=== PATIENT | female | born 1935 | race Caucasian/White ===

== ENCOUNTER 2017-10-11 10:13 | Emergency (ER) | payer MEDICARE ==
[~2017-10-11] VITALS: Ht 152.4 cm; Wt 61.7 kg
[~2017-10-11 10:13] MED LIST: ALBU90OI INH; ALEN70 PO; BENZ100A PO; CIPR250 PO; ENOX30I SQ; ERGO50000 PO; ESCI20 PO; GABA600 PO; HYDACE5 PO; MULVITMIND PO; NITR100; PRIM50 PO; Percocet 5-3251 EACH PO; ROSU10TA; ROSU10TA PO; SOMA350 MG PO; TOPI100 PO; WARF10 PO; WARF5 PO; Zithromax250 MG PO; Zofran4 MG PO; [UNRECOGNIZED DRUG - REMARK]
[2017-10-11] MEDS ORDERED: OMEPRAZOLE DR 20 MG (10:35)
[2017-10-11] MEDS ORDERED: TRAM50 (10:35)
[2017-10-11] MEDS ORDERED: HYDR1TAB94 PO (11:38)
== END 2017-10-11 11:20 | disposition home or self-care (01) ==
LOC: ER 10:13
DX: S83.92XA Sprain of unspecified site of left knee, initial encounter (principal); Z88.0 Allergy status to penicillin; Z88.5 Allergy status to narcotic agent; Z91.011 Allergy to milk products; Z79.899 Other long term (current) drug therapy; Z79.01 Long term (current) use of anticoagulants; Z86.718 Personal history of other venous thrombosis and embolism; Z90.89 Acquired absence of other organs; Z90.710 Acquired absence of both cervix and uterus; X58.XXXA Exposure to other specified factors, initial encounter
CPT/HCPCS: 73562-LT; 99283

== ENCOUNTER 2017-10-12 12:21 | Emergency (ER) | payer MEDICARE ==
[~2017-10-12] VITALS: Ht 154.9 cm; Wt 61.2 kg
[~2017-10-12 12:21] MED LIST changes: +HYDR1TAB94 PO; +OMEPRAZOLE DR 20 MG; +TRAM50
== END 2017-10-12 14:46 | disposition home or self-care (01) ==
LOC: ER 12:21
DX: S20.211A Contusion of right front wall of thorax, initial encounter (principal); Z86.718 Personal history of other venous thrombosis and embolism; Z90.710 Acquired absence of both cervix and uterus; Z88.0 Allergy status to penicillin; Z88.5 Allergy status to narcotic agent; Z91.011 Allergy to milk products; Z79.899 Other long term (current) drug therapy; Z79.01 Long term (current) use of anticoagulants; W18.30XA Fall on same level, unspecified, initial encounter
CPT/HCPCS: 71046; 99283

== ENCOUNTER → 2018-04-29 | Outpatient (CLI) | payer MEDICARE | END | disposition home or self-care (01) | LOC: LAB SHORT 10:38 → PLD 10:38 | DX: D22.39 Melanocytic nevi of other parts of face (principal); L57.0 Actinic keratosis; L57.8 Other skin changes due to chronic exposure to nonionizing radiation; B07.9 Viral wart, unspecified | CPT/HCPCS: 88305 ==

== ENCOUNTER → 2019-03-02 | Outpatient (CLI) | payer MEDICARE ==
[2019-03-02 13:10] LABS: BASOPHILS ABSOLUTE AUTO 0.05 K/mm3 (0.00-0.23); BASOPHILS PERCENT AUTO 1 % (0-2); EOSINOPHILS ABSOLUTE AUTO 0.06 K/mm3 (0.00-0.68); EOSINOPHILS PERCENT AUTO 1 % (0-6); Hematocrit 44.7 % (33.0-51.0); Hemoglobin 14.2 g/dL (11.5-16.0); IMMATURE GRAN ABSOLUTE AUTO 0.01 K/mm3 (0.00-0.10); IMMATURE GRAN PERCENT AUTO 0 % (0-1); LYMPHOCYTES ABSOLUTE AUTO 1.75 K/mm3 (0.84-5.20); LYMPHOCYTES PERCENT AUTO 25 % (21-46); MONOCYTES ABSOLUTE AUTO 0.51 K/mm3 (0.16-1.47); MONOCYTES PERCENT AUTO 7 % (4-13); Mean Corpuscular HGB 29.9 pg (26.0-34.0); Mean Corpuscular HGB Conc 31.8 g/dL (31.5-36.5); Mean Corpuscular Volume 94 fL (80-100); Mean Platelet Volume 10.9 fL (9.1-12.4); NEUTROPHILS ABSOLUTE AUTO 4.55 K/mm3 (1.96-9.15); NEUTROPHILS PERCENT AUTO 66 % (41-73); Platelet Count 391 K/mm3 (150-400); RDW Coefficient Variation 12.6 % (11.7-14.2); RDW Standard Deviation 43.7 fL (35.1-46.3); Red Blood Cell Count 4.75 M/mm3 (3.80-5.20); White Blood Cell Count 6.93 K/mm3 (4.00-11.30)
[2019-03-02 13:25] LABS: Albumin, Blood 4.3 g/dL (3.4-5.0); Albumin/Globulin Ratio 1.4 (0.8-1.8); Bilirubin, Total 0.4 mg/dL (0.1-1.0); Bun/Creatinine Ratio 18.7 (12.0-20.0); Calcium, Blood 9.3 mg/dL (8.5-10.1); Creatinine, Blood 0.96 mg/dL (0.40-1.00); Globulin, Blood 3.1 g/dL (2.2-4.0); Potassium, Blood 4.8 mmol/L (3.5-5.5); Total Protein, Blood 7.4 g/dL (6.4-8.2)
== END | disposition home or self-care (01) ==
LOC: LAB SHORT 12:41 → LAB 12:41
PROVIDERS: Physician Assistant
DX: R10.84 Generalized abdominal pain (principal)
CPT/HCPCS: 80053; 85025

== ENCOUNTER 2019-10-04 02:37 | Emergency (ER) | payer SELFPAY ==
[~2019-10-04] VITALS: Ht 154.9 cm; Wt 64.4 kg
[2019-10-04 03:08] LABS: Source, Urine Clean Catch
[2019-10-04 03:14] LABS: BASOPHILS ABSOLUTE AUTO 0.04 K/mm3 (0.00-0.23); BASOPHILS PERCENT AUTO 1 % (0-2); EOSINOPHILS ABSOLUTE AUTO 0.11 K/mm3 (0.00-0.68); EOSINOPHILS PERCENT AUTO 2 % (0-6); Hematocrit 38.9 % (33.0-51.0); Hemoglobin 12.4 g/dL (11.5-16.0); IMMATURE GRAN ABSOLUTE AUTO 0.01 K/mm3 (0.00-0.10); IMMATURE GRAN PERCENT AUTO 0 % (0-1); LYMPHOCYTES ABSOLUTE AUTO 1.51 K/mm3 (0.84-5.20); LYMPHOCYTES PERCENT AUTO 26 % (21-46); MONOCYTES PERCENT AUTO 9 % (4-13); Mean Corpuscular HGB 30.3 pg (26.0-34.0); Mean Corpuscular HGB Conc 31.9 g/dL (31.5-36.5); Mean Corpuscular Volume 95 fL (80-100); Mean Platelet Volume 10.8 fL (9.1-12.4); NEUTROPHILS ABSOLUTE AUTO 3.61 K/mm3 (1.96-9.15); NEUTROPHILS PERCENT AUTO 62 % (41-73); Platelet Count 263 K/mm3 (150-400); RDW Coefficient Variation 12.3 % (11.7-14.2); RDW Standard Deviation 43.1 fL (35.1-46.3); Red Blood Cell Count 4.09 M/mm3 (3.80-5.20); White Blood Cell Count 5.78 K/mm3 (4.00-11.30)
[2019-10-04 03:16] LABS: Bilirubin, Urine Neg (Neg); Blood, Urine Neg (Neg); Glucose Qualitative, Urine Neg (Neg); Ketones, Urine Neg (Neg); Leukocyte Esterase, Urine Neg (Neg); Nitrite, Urine Neg (Neg); Protein, Urine Neg (Neg); Specific Gravity, Urine 1.005 (1.003-1.022); Urobilinogen, Urine NORM (Normal)
[2019-10-04 03:28] LABS: Alanine Aminotransfer (ALT/SGP 19 U/L (12-78); Albumin, Blood 3.9 g/dL (3.4-5.0); Albumin/Globulin Ratio 1.3 (0.8-1.8); Alk Phos 148 U/L (50-136); Anion Gap 3 mmol/L (6-16); Aspartate Aminotrans (AST/SGOT 16 U/L (12-37); Bilirubin, Total 0.4 mg/dL (0.1-1.0); Blood Urea Nitrogen 17 mg/dL (8-24); Bun/Creatinine Ratio 19.4 (12.0-20.0); CO2, Blood 28 mmol/L (21-32); Calcium, Blood 9.3 mg/dL (8.5-10.1); Chloride, Blood 112 mmol/L (98-108); Creatinine, Blood 0.88 mg/dL (0.40-1.00); Globulin, Blood 2.9 g/dL (2.2-4.0); Glomerular Filtration Rate >60 (60-); Glucose, Blood 100 mg/dL (70-99); Magnesium, Blood 2.1 mg/dL (1.6-2.4); Potassium, Blood 4.7 mmol/L (3.5-5.5); Sodium, Blood 143 mmol/L (136-145); Total Protein, Blood 6.8 g/dL (6.4-8.2); Troponin I <0.015 ng/mL (0.000-0.040)
[2019-10-04 03:32] LABS: Appearance, Urine Clear (Clear); Color, Urine Pale Yellow (P-Yellow)
== END 2019-10-04 04:44 | disposition home or self-care (01) ==
LOC: ER 02:37
PROVIDERS: Emergency Medicine
DX: E86.0 Dehydration (principal); R53.1 Weakness; J45.909 Unspecified asthma, uncomplicated; Z86.718 Personal history of other venous thrombosis and embolism; Z88.0 Allergy status to penicillin; Z88.5 Allergy status to narcotic agent; Z91.011 Allergy to milk products
CPT/HCPCS: 36415; 71045; 80053; 81003; 83605; 83735; 83880; 84443; 84484; 85025; 93005; 93010; 96360; 99284-25; J7030; P9612

== ENCOUNTER 2021-12-12 20:35 | Emergency (ER) | payer OTHER ==
[~2021-12-12] VITALS: Ht 157.5 cm; Wt 49.9 kg
[2021-12-13 00:04] LABS: BASOPHILS ABSOLUTE AUTO 0.04 K/mm3 (0.00-0.23); BASOPHILS PERCENT AUTO 1 % (0-2); EOSINOPHILS ABSOLUTE AUTO 0.04 K/mm3 (0.00-0.68); EOSINOPHILS PERCENT AUTO 1 % (0-6); Hematocrit 33.9 % (33.0-51.0); Hemoglobin 11.1 g/dL (11.5-16.0); IMMATURE GRAN ABSOLUTE AUTO 0.02 K/mm3 (0.00-0.10); IMMATURE GRAN PERCENT AUTO 0 % (0-1); LYMPHOCYTES ABSOLUTE AUTO 1.57 K/mm3 (0.84-5.20); LYMPHOCYTES PERCENT AUTO 20 % (21-46); MONOCYTES PERCENT AUTO 6 % (4-13); Mean Corpuscular HGB 30.6 pg (26.0-34.0); Mean Corpuscular HGB Conc 32.7 g/dL (31.5-36.5); Mean Corpuscular Volume 93 fL (80-100); Mean Platelet Volume 11.3 fL (9.1-12.4); NEUTROPHILS ABSOLUTE AUTO 5.88 K/mm3 (1.96-9.15); NEUTROPHILS PERCENT AUTO 73 % (41-73); Platelet Count 223 K/mm3 (150-400); RDW Coefficient Variation 12.5 % (11.7-14.2); RDW Standard Deviation 43.1 fL (35.1-46.3); Red Blood Cell Count 3.63 M/mm3 (3.80-5.20); White Blood Cell Count 8.05 K/mm3 (4.00-11.30)
[2021-12-13 00:22] LABS: Bun/Creatinine Ratio 21.9 (12.0-20.0); Calcium, Blood 9.3 mg/dL (8.5-10.1); Creatinine, Blood 0.92 mg/dL (0.40-1.00); Potassium, Blood 4.4 mmol/L (3.5-5.5)
[2021-12-13 00:58] LABS: Appearance, Urine Clear (Clear); Bilirubin, Urine Neg (Neg); Blood, Urine Neg (Neg); Color, Urine Yellow (P-Yellow); Glucose Qualitative, Urine Neg (Neg); Ketones, Urine Neg (Neg); Leukocyte Esterase, Urine 1+ (Neg); Nitrite, Urine Neg (Neg); Protein, Urine Neg (Neg); Urobilinogen, Urine NORM (Normal)
[2021-12-13 01:07] LABS: Bacteria Few /hpf; Red Blood Cells, Urine 0-2 /hpf (0-2); Squamous Epithelial Cells Rare /hpf (Few)
[2021-12-13 01:09] LABS: Source, Urine Condom Cath
[2022-03-23] MEDS ORDERED: Percocet 5-3251 EACH PO (19:41)
== END 2021-12-13 08:46 | disposition home or self-care (01) ==
LOC: ER 20:35
PROVIDERS: Student in an Organized Health Care Education/Training Program
DX: S06.0X0A Concussion without loss of consciousness, initial encounter (principal); S00.83XA Contusion of other part of head, initial encounter; S40.012A Contusion of left shoulder, initial encounter; R25.1 Tremor, unspecified; Z88.0 Allergy status to penicillin; Z88.5 Allergy status to narcotic agent; Z79.899 Other long term (current) drug therapy; W19.XXXA Unspecified fall, initial encounter
CPT/HCPCS: 36415; 70450; 73030; 73590; 80048; 81001; 85025; 87086; 96374; 99284-25; J0360

== ENCOUNTER 2022-03-16 20:09 | Emergency (ER) | payer OTHER ==
[~2022-03-16] VITALS: Ht 152.4 cm; Wt 45.4 kg
[2022-03-16 20:58] LABS: Hematocrit 32.2 % (33.0-51.0); Hemoglobin 10.4 g/dL (11.5-16.0); Mean Corpuscular HGB 30.3 pg (26.0-34.0); Mean Corpuscular HGB Conc 32.3 g/dL (31.5-36.5); Mean Corpuscular Volume 94 fL (80-100); Mean Platelet Volume 10.4 fL (9.1-12.4); Platelet Count 212 K/mm3 (150-400); RDW Coefficient Variation 12.8 % (11.7-14.2); RDW Standard Deviation 43.9 fL (35.1-46.3); Red Blood Cell Count 3.43 M/mm3 (3.80-5.20); White Blood Cell Count 17.19 K/mm3 (4.00-11.30)
[2022-03-16 21:08] LABS: Albumin, Blood 3.7 g/dL (3.4-5.0); Albumin/Globulin Ratio 1.5 (0.8-1.8); Bilirubin, Total 0.7 mg/dL (0.1-1.0); Bun/Creatinine Ratio 28.8 (12.0-20.0); Creatinine, Blood 0.83 mg/dL (0.40-1.00); Globulin, Blood 2.4 g/dL (2.2-4.0); Potassium, Blood 4.5 mmol/L (3.5-5.5); Total Protein, Blood 6.1 g/dL (6.4-8.2)
[2022-03-16 21:22] LABS: BAND PERCENT MAN 15 % (0-8); BASOPHILS ABSOLUTE MAN 0.17 K/mm3 (0.00-0.23); BASOPHILS PERCENT MAN 1 % (0-2); EOSINOPHILS PERCENT MAN 0 % (0-6); LYMPHOCYTES ABSOLUTE MAN 0.51 K/mm3 (0.84-5.20); LYMPHOCYTES PERCENT MAN 3 % (21-46); MONOCYTES ABSOLUTE MAN 0.17 K/mm3 (0.16-1.47); MONOCYTES PERCENT MAN 1 % (4-13); NEUTROPHILS ABSOLUTE MAN 16.33 K/mm3 (1.96-9.15); SEG NEUTROPHILS PERCENT MAN 80 % (41-73); TOTAL CELLS COUNTED 100
[2022-03-16 23:27] LABS: Source, Urine Clean Catch
[2022-03-16 23:29] LABS: Bilirubin, Urine Neg (Neg); Blood, Urine 3+ (Neg); Glucose Qualitative, Urine Neg (Neg); Ketones, Urine 2+ (Neg); Leukocyte Esterase, Urine 3+ (Neg); Nitrite, Urine Neg (Neg); Protein, Urine 2+ (Neg); Urobilinogen, Urine NORM (Normal); pH, Urine 6.5 (5.0-8.0)
[2022-03-16 23:37] LABS: Creatine Kinase MB 16.4 ng/mL (0.0-3.6)
[2022-03-16 23:47] LABS: Appearance, Urine Clear (Clear); Color, Urine Yellow (P-Yellow)
[2022-03-16 23:48] LABS: Bacteria Few /hpf; Red Blood Cells, Urine 0-2 /hpf (0-2); Squamous Epithelial Cells Rare /hpf (Few)
[2022-03-17] MEDS ORDERED: TRAM50 PO (00:12)
[2022-03-17] MEDS ORDERED: CEFD300 PO (00:12)
== END 2022-03-17 00:52 | disposition home or self-care (01) ==
LOC: ER 20:09
PROVIDERS: Emergency Medicine
DX: M25.512 Pain in left shoulder (principal); R10.2 Pelvic and perineal pain; R07.9 Chest pain, unspecified; M54.2 Cervicalgia; M54.9 Dorsalgia, unspecified; W18.30XA Fall on same level, unspecified, initial encounter; N39.0 Urinary tract infection, site not specified; G20 Parkinson's disease; J45.909 Unspecified asthma, uncomplicated
CPT/HCPCS: 36415; 71045; 72040; 72100; 72170; 73030; 80053; 81001; 82550; 82553; 83605; 85025; 87086; 96374; 99284-25; A9270; J0456; J0696; J1885; J7050

== ENCOUNTER 2022-03-18 10:52 | Inpatient (IN) | payer OTHER ==
[~2022-03-18] VITALS: Ht 152.4 cm; Wt 45.9 kg
[~2022-03-18 10:52] MED LIST changes: +CEFD300 PO; +TRAM50 PO
[2022-03-18 11:37] LABS: BASOPHILS ABSOLUTE AUTO 0.02 K/mm3 (0.00-0.23); BASOPHILS PERCENT AUTO 0 % (0-2); EOSINOPHILS ABSOLUTE AUTO 0.05 K/mm3 (0.00-0.68); EOSINOPHILS PERCENT AUTO 1 % (0-6); Hematocrit 32.6 % (33.0-51.0); Hemoglobin 10.5 g/dL (11.5-16.0); IMMATURE GRAN ABSOLUTE AUTO 0.04 K/mm3 (0.00-0.10); IMMATURE GRAN PERCENT AUTO 1 % (0-1); LYMPHOCYTES ABSOLUTE AUTO 0.61 K/mm3 (0.84-5.20); LYMPHOCYTES PERCENT AUTO 7 % (21-46); MONOCYTES ABSOLUTE AUTO 0.56 K/mm3 (0.16-1.47); MONOCYTES PERCENT AUTO 7 % (4-13); Mean Corpuscular HGB 29.9 pg (26.0-34.0); Mean Corpuscular HGB Conc 32.2 g/dL (31.5-36.5); Mean Corpuscular Volume 93 fL (80-100); NEUTROPHILS ABSOLUTE AUTO 7.21 K/mm3 (1.96-9.15); NEUTROPHILS PERCENT AUTO 85 % (41-73); RDW Coefficient Variation 12.9 % (11.7-14.2); RDW Standard Deviation 43.7 fL (35.1-46.3); Red Blood Cell Count 3.51 M/mm3 (3.80-5.20); White Blood Cell Count 8.49 K/mm3 (4.00-11.30)
[2022-03-18 11:46] LABS: Mean Platelet Volume 11.2 fL (9.1-12.4)
[2022-03-18 11:52] LABS: Albumin, Blood 3.5 g/dL (3.4-5.0); Albumin/Globulin Ratio 1.4 (0.8-1.8); Bilirubin, Total 0.9 mg/dL (0.1-1.0); Bun/Creatinine Ratio 29.3 (12.0-20.0); Creatinine, Blood 0.92 mg/dL (0.40-1.00); Globulin, Blood 2.5 g/dL (2.2-4.0); Potassium, Blood 4.3 mmol/L (3.5-5.5)
[2022-03-18 13:06] LABS: Mean Platelet Volume 10.8 fL (9.1-12.4); Platelet Count 182 K/mm3 (150-400)
[2022-03-18 13:17] LABS: International Normalized Ratio 1.04; Prothrombin Time Results 10.9 Sec (9.7-11.5)
--- NOTE | 2022-03-18 17:47 | NUR ---
ADMIT/SHIFT SUMMARY: ALERT AND ORIENTED X2-3. INTERMITTENT CONFUSION. VERY WEAK OVERALL 2 PERSON ASSIST TO BEDSIDE COMMODE. NEEDS HELP TURNING IN BED. MULTIPLE FALLS AT HOME. DAUGHTERS AT BEDSIDE. PERRLA. DENIES NUMBNESS/TINGLING. ON 1L NASAL CANNULA SATING ABOVE 94%. BROUGHT UP FROM ER ON 3L. DENIES HOME O2 USE. LUNGS SOUNDING CLEAR AND DIM. NO COUGH AT THIS TIME. TELE SHOWING SINUS RHYTHM WITH HR IN THE 70'S. BP STABLE. WHEN ASKED ABOUT CHEST PAIN, PATIENT STATES NO. WHEN BOOSTED IN BED PATIENT GRIMMICES AND GRABS AT CHEST. DR. LOWE IN TO ASSESS. POSSIBLE SHEMAR SCAN/STRESS TEST IN AM. NPO AT MIDNIGHT. LOVENOX. NO SIGNS OF EDEMA. TROPS TRENDING UP. DENIES ABDOMINAL PAIN/NAUSEA. VEGAN DIET. EATING AT THIS TIME. RECENT VISIT TO ED WITH DIAGNOSIS OF UTI PER FAMILY. DR. RAMOS CALLED, HOME MEDS INCLUDING ANTIBIOTIC ORDERED. 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 EDUCATED BIG MACHINE CONSULTANT LIGHT AND UNIT. BED ALARM IN PLACE. WILL CONTINUE TO MONITOR AND REPORT OFF TO ONCOMING RN.
--- NOTE | 2022-03-18 22:33 | NUR ---
CARE ASSUMPTION: RECEIVED REPORT FROM ZION BARTH RN. PATIENT WAS IN BED WATCHING TV. VSS WNL, DENIES CHEST PAIN OR SOB. PATIENT LATER TRIED TO GET OUT OF BED TO GO TO THE BATHROOM. ASSISTED TO BSC THEN BACK TO BED. RECEIVED CALL PATIENT HAD PULLED IV OUT. NONDESTRUCTIVE TESTER PLACED NEW IV. PATIENT IN CHAIR BUT DOES NOT SET OFF TAB ALARM SO AGAIN FOUND PATIENT STANDING IN MIDDLE OF ROOM WHEN THIS RN WENT IN TO CALL DAUGHTER HOWARD FOR HER. DAUGHTER WAS ABLE TO TALK PATIENT INTO GOING TO BED FOR THE NIGHT AND OTHER DAUGHTER GISELL IS AVAILABLE TO SIT WITH HER IF NEEDED. PATIENT CURRENTLY IN BED WITH BED ALARM SET, SOOTHING MUSIC PLAYING AND LIGHTS OFF. BED LOW AND CALL LIGHT IN REACH.
[2022-03-19 04:58] LABS: BASOPHILS ABSOLUTE AUTO 0.04 K/mm3 (0.00-0.23); BASOPHILS PERCENT AUTO 1 % (0-2); EOSINOPHILS ABSOLUTE AUTO 0.06 K/mm3 (0.00-0.68); EOSINOPHILS PERCENT AUTO 1 % (0-6); Hemoglobin 11.6 g/dL (11.5-16.0); IMMATURE GRAN ABSOLUTE AUTO 0.06 K/mm3 (0.00-0.10); IMMATURE GRAN PERCENT AUTO 1 % (0-1); LYMPHOCYTES ABSOLUTE AUTO 1.22 K/mm3 (0.84-5.20); LYMPHOCYTES PERCENT AUTO 15 % (21-46); MONOCYTES ABSOLUTE AUTO 0.73 K/mm3 (0.16-1.47); MONOCYTES PERCENT AUTO 9 % (4-13); Mean Corpuscular HGB 29.9 pg (26.0-34.0); Mean Corpuscular HGB Conc 32.2 g/dL (31.5-36.5); Mean Corpuscular Volume 93 fL (80-100); NEUTROPHILS ABSOLUTE AUTO 5.91 K/mm3 (1.96-9.15); NEUTROPHILS PERCENT AUTO 74 % (41-73); RDW Coefficient Variation 12.8 % (11.7-14.2); RDW Standard Deviation 43.5 fL (35.1-46.3); Red Blood Cell Count 3.88 M/mm3 (3.80-5.20); White Blood Cell Count 8.02 K/mm3 (4.00-11.30)
[2022-03-19 05:10] LABS: Albumin, Blood 3.7 g/dL (3.4-5.0); Albumin/Globulin Ratio 1.3 (0.8-1.8); Bun/Creatinine Ratio 32.6 (12.0-20.0); Calcium, Blood 9.5 mg/dL (8.5-10.1); Creatinine, Blood 0.98 mg/dL (0.40-1.00); Globulin, Blood 2.9 g/dL (2.2-4.0); Potassium, Blood 4.6 mmol/L (3.5-5.5); Total Protein, Blood 6.6 g/dL (6.4-8.2)
--- NOTE | 2022-03-19 06:22 | NUR ---
SHIFT SUMMARY: PATIENT VS WNL T/O NIGHT AND TROPONINS TRENDING DOWN. TITRATED O2 TO RA - O2 SATS >95%. PATIENT DENIES CHEST PAIN, SOB, N/V, OR OTHER DISCOMFORT. BECAME CONFUSED AND IMPULSIVE AFTER EVENING MEDS - DAUGHTER HOWARD TALKED TO HER ON THE PHONE AND SHE WENT TO BED AMICABLY. BED ALARM WAS SET AND WENT OFF WHEN PATIENT TRIED TO SLIDE OUT OF BED "TO GO TO THE BATHROOM." SIMILAR PATIENT BEHAVIOR FROM [id number] DESPITE SAFETY PRECAUTIONS ([employer] DID NOT ALWAYS ALARM), INCREASED SUPERVISION, AND REMINDERS TO USE CALL LIGHT. PATIENT IN RECLINER WITH DAUGHTER GISELL AT BEDSIDE NOW. PATIENT PULLED TELE LEADS OFF SAYING, "I THINK I GOT ALL OF THEM" AND WHEN REMINDED THEY WERE IN PLACE TO MONITOR HER HEART SAID, "OH SHIT, I'M SORRY." PATIENT MORE CONFUSED AND REPEATING SELF THIS AM, BUT REMAINS PLEASANT AND COOPERATIVE. HAS BEEN NPO SINCE MIDNIGHT IN ANTICIPATION OF PROCEDURE. TAB ALARM ON CHAIR AND DAUGHTER AT BEDSIDE. WILL CONTINUE TO MONITOR AND REPORT TO ONCOMING RN.
--- NOTE | 2022-03-19 10:45 | NUR ---
TITRATED DOBUTAMINE DRIP AND 5MG LOPRESSOR IV GIVEN DURING DOBUTAMINE STRESS ECHO PER DR LOWE ORDERS. DR LOWE AT BEDSIDE FOR DURATION OF DOBUTAMINE ECHO.
--- NOTE | 2022-03-19 11:25 | NUR ---
Echocardiogram completed.
--- NOTE | 2022-03-19 11:53 | NUR ---
Spiritual care visit conducteded. Upon responding to a spiritual care referral, I visit pt. Pt's dtrs. Lakshmi and Radha are bedside. Family and pt were confused as to why a site damage prevention technician would visit and show little interest in conversation. Pt mentions that she is afraid of being in a hospital and away from family and friends yet Pt's primary concern was lunch. She complains that staff is not attentive because pt wants to eat and there is not food delivered. After my visit the food trays arrived to the unit and (after getting it cleared by art gallery director Courtney) I gave pt her tray and family assisted on preparing the tray for pt to eat. I offer therapeutic listening and anxiety containment. I will continue to remain available to pt and family.
[2022-03-19] MEDS ORDERED: CLOP75 PO (13:39)
[2022-03-19] MEDS ORDERED: ASPI81CH PO (13:39)
[2022-03-19] MEDS ORDERED: ATOR40TA PO (13:39)
[2022-03-19] MEDS ORDERED: Prinivil10 MG PO (13:40)
[2022-03-19] MEDS ORDERED: ISOSORBIDE MONO60 MG PO (13:41)
[2022-03-19] MEDS ORDERED: NITR.4SL SL (13:41)
[2022-03-19] MEDS ORDERED: METO50ER PO (13:41)
--- NOTE | 2022-03-19 15:32 | NUR ---
DISCHARGE SUMMARY: PATIENT AND FAMILY WERE INFORMED OF NEW MEDICATIONS, AND DISCHARGE ORDERS, AND FOLOW - UPS, PATIENT AWARE OF SITUTATION ALONG WITH FAMILY WITH NO FURTHER QUESTIONS COMMENTS OR CONCERNS, PATIENT IN NO SIGNS OF ACUTE DISTRESS, DENIES CHEST PAIN AT TIME OF DISCHARGE, WAS WHEELED OUT BY PATIENT GARMENT INSPECTOR VIA WHEELCHAIR. REMOVED BOTH IV'S AND TAKEN OFF TELE. NO FURTHER CONCERNS OR QUESTIONS FROM THIS RN.
== END 2022-03-19 15:15 | disposition home health service (06) | DRG 282 ==
LOC: ER 10:52 → PCU 13:26
PROVIDERS: Emergency Medicine; ADMIT Internal Medicine
DX: I21.4 Non-ST elevation (NSTEMI) myocardial infarction (principal); K21.9 Gastro-esophageal reflux disease without esophagitis; I10 Essential (primary) hypertension; M81.0 Age-related osteoporosis without current pathological fracture; R77.8 Other specified abnormalities of plasma proteins; J45.909 Unspecified asthma, uncomplicated; G20 Parkinson's disease; F32.A Depression, unspecified; Z90.710 Acquired absence of both cervix and uterus; Z98.42 Cataract extraction status, left eye; Z98.41 Cataract extraction status, right eye; Z98.890 Other specified postprocedural states; Z88.5 Allergy status to narcotic agent; Z88.0 Allergy status to penicillin; Z91.011 Allergy to milk products; Z79.01 Long term (current) use of anticoagulants; Z79.899 Other long term (current) drug therapy; Z79.891 Long term (current) use of opiate analgesic; Z87.891 Personal history of nicotine dependence; Z79.2 Long term (current) use of antibiotics; Z86.718 Personal history of other venous thrombosis and embolism; Z87.11 Personal history of peptic ulcer disease
CPT/HCPCS: 36415; 71045; 80053; 83690; 84484; 85025; 85049; 85520; 85610; 93005; 93010; 93017; 93306; 93350; 99285-25; A9270; J0461; J1250; J1650; J3010